=== PATIENT | female | born 1965 | race African-American/Black ===

== ENCOUNTER 2017-08-19 23:24 | Emergency (ER) | payer OTHER ==
[~2017-08-19] VITALS: Ht 165.1 cm; Wt 97.5 kg
[~2017-08-19 23:24] MED LIST: AMLO1TAB15 PO; LOPE2CAP PO; LOSA100T2 PO
[2017-08-20] MEDS ORDERED: ONDANSETRON PF 4 MG/2 ML VIAL. IV ONE (00:15)
[2017-08-20] MEDS ORDERED: ASPIRIN CHEWABLE 81 MG TABLET. PO ONE (00:15)
[2017-08-20 00:19] LABS: BASO % 1 % (0-3); EOS % 6 % (0-3); HEMATOCRIT 39.1 % (36.0-47.0); HEMOGLOBIN 12.6 g/dL (12.0-15.5); LYMPH # 1.9 x10^3/uL (1.0-4.8); LYMPH % 43 % (24-48); MEAN CORPUSCULAR HEMOGLOBIN 25 pg (25-35); MEAN CORPUSCULAR HGB CONC 32 g/dL (31-37); MEAN CORPUSCULAR VOLUME 78 fL (79-100); MONO % 6 % (0-9); NEUT % 44 % (31-73); PLATELET COUNT 238 x10^3/uL (140-400); RED CELL DISTRIBUTION WIDTH 14.8 % (11.5-14.5); WHITE BLOOD COUNT 4.4 x10^3/uL (4.0-11.0)
[2017-08-20] MEDS: fentaNYL PF VIAL 100 MCG/2 ML VIAL IV PRN ×2 (00:23→01:51)
--- NOTE | 2017-08-20 00:26 | PHYS DOC ---
Past Medical History Past Medical History: Hypertension, Other Additional Past Medical Histor: childhood asthma Past Surgical History: Additional Past Surgical Histo: whipple Alcohol Use: Occasionally Drug Use: None Adult General Chief Complaint Chief Complaint: CHEST PAIN HPI HPI Patient is a 51 year old female who presents with complaint of chest pain. Patient states her symptoms are approximately 1 hour prior to arrival. Patient states that the pain started at rest along left side of her chest. Patient describes the pain as sharp. Patient states it radiates into her left upper extremity. Patient denies any associated nausea, diaphoresis, or shortness of breath with her symptoms. Patient has history of hypertension but denies any other significant past medical history. Patient denies history of smoking and denies family history of myocardial infarction. Patient states that the pain worsens when her chest is touched. Patient has not taken any medications for her symptoms. Patient states that she has had similar symptoms off and on but has not had any recently. Patient has not had any history of cardiac stress testing. Review of Systems Review of Systems Constitutional: Denies fever or chills [] Eyes: Denies change in visual acuity, redness, or eye pain [] HENT: Denies nasal congestion or sore throat [] Respiratory: Denies cough or shortness of breath [] Cardiovascular: Chest pain, denies edema[] GI: Denies abdominal pain, nausea, vomiting, bloody stools or diarrhea [] : Denies dysuria or hematuria [] Musculoskeletal: Denies back pain or joint pain [] Integument: Denies rash or skin lesions [] Neurologic: Denies headache, focal weakness or sensory changes [] Current Medications Current Medications Current Medications Medications (Trade) Dose Ordered Sig/Art Start Time Stop Time Status Last Admin Dose Admin Aspirin (Children'S Aspirin) 324 mg 1X ONCE 08/20/17 00:15 08/20/17 00:16 DC 08/20/17 00:21 324 MG Fentanyl Citrate (Fentanyl 2ml Vial) 50 mcg PRN Q15MIN PRN 08/20/17 00:15 08/21/17 00:14 08/20/17 01:51 50 MCG Ondansetron HCl (Zofran) 4 mg 1X ONCE 08/20/17 00:15 08/20/17 00:16 DC 08/20/17 00:22 4 MG Allergies Allergies Allergies Coded Allergies Type Severity Reaction Last Updated Verified No Known Drug Allergies 05/07/14 No Physical Exam Physical Exam Constitutional: Alert, afebrile, appears in no acute distress. [] HENT: Normocephalic, atraumatic, bilateral external ears normal, oropharynx moist, no oral exudates, nose normal. [] Eyes: PERRLA, EOMI, conjunctiva normal, no discharge. [] Neck: Normal range of motion, no tenderness, supple, no stridor. [] Cardiovascular:Heart rate regular rhythm, no murmur [] Lungs & Thorax: Bilateral breath sounds clear to auscultation, left anterior chest wall tenderness to palpation causing reproducible pain [] Abdomen: Bowel sounds normal, soft, no tenderness, no masses, no pulsatile masses. [] Skin: Warm, dry, no erythema, no rash. [] Back: No tenderness, no CVA tenderness. [] Extremities: No tenderness, no cyanosis, no clubbing, ROM intact, no edema. [] Neurologic: Alert and oriented X 3, normal motor function, normal sensory function, no focal deficits noted. [] Current Patient Data Vital Signs Vital Signs Date Time Temp Pulse Resp B/P (MAP) Pulse Ox O2 Delivery O2 Flow Rate FiO2 08/20/17 01:55 58 16 148/73 (98) 98 Room Air 08/19/17 23:30 97.5 97.5 Lab Values Laboratory Tests Test 08/19/17 00:05 08/19/17 23:35 08/20/17 00:23 08/20/17 01:45 Magnesium Level 2.1 mg/dL (1.8-2.4) Troponin I Quantitative < 0.017 ng/mL (0.000-0.055) < 0.017 ng/mL (0.000-0.055) Lipase 188 U/L (73-393) White Blood Count 4.4 x10^3/uL (4.0-11.0) Red Blood Count 5.00 x10^6/uL (3.50-5.40) Hemoglobin 12.6 g/dL (12.0-15.5) Hematocrit 39.1 % (36.0-47.0) Mean Corpuscular Volume 78 fL (79-100) L Mean Corpuscular Hemoglobin 25 pg (25-35) Mean Corpuscular Hemoglobin Concent 32 g/dL (31-37) Red Cell Distribution Width 14.8 % (11.5-14.5) H Platelet Count 238 x10^3/uL (140-400) Neutrophils (%) (Auto) 44 % (31-73) Lymphocytes (%) (Auto) 43 % (24-48) Monocytes (%) (Auto) 6 % (0-9) Eosinophils (%) (Auto) 6 % (0-3) H Basophils (%) (Auto) 1 % (0-3) Neutrophils # (Auto) 1.9 x10^3uL (1.8-7.7) Lymphocytes # (Auto) 1.9 x10^3/uL (1.0-4.8) Monocytes # (Auto) 0.3 x10^3/uL (0.0-1.1) Eosinophils # (Auto) 0.3 x10^3/uL (0.0-0.7) Basophils # (Auto) 0.0 x10^3/uL (0.0-0.2) Sodium Level 140 mmol/L (136-145) Potassium Level 3.4 mmol/L (3.5-5.1) L Chloride Level 103 mmol/L (98-107) Carbon Dioxide Level 30 mmol/L (21-32) Anion Gap 7 (6-14) Blood Urea Nitrogen 14 mg/dL (7-20) Creatinine 0.9 mg/dL (0.6-1.0) Estimated GFR (Cockcroft-Gault) 80.5 BUN/Creatinine Ratio 16 (6-20) Glucose Level 138 mg/dL (70-99) H Calcium Level 8.9 mg/dL (8.5-10.1) Total Bilirubin 0.2 mg/dL (0.2-1.0) Aspartate Amino Transferase (AST) 20 U/L (15-37) Alanine Aminotransferase (ALT) 28 U/L (14-59) Alkaline Phosphatase 129 U/L (46-116) H Creatine Kinase 106 U/L (26-192) 87 U/L (26-192) Creatine Kinase MB (Mass) < 0.5 ng/mL (0.0-3.6) < 0.5 ng/mL (0.0-3.6) Creatine Kinase MB Relative Index % (0-4) % (0-4) ZG-Ynk-V-Type Natriuretic Peptide 33 pg/mL (0-124) Total Protein 7.7 g/dL (6.4-8.2) Albumin 3.7 g/dL (3.4-5.0) Albumin/Globulin Ratio 0.9 (1.0-1.7) L Urine Collection Type Unknown Urine Color Yellow Urine Clarity Cloudy Urine pH 6.5 Urine Specific Sob[place]ki <=1.005 Urine Protein Negative mg/dL (NEG-TRACE) Urine Glucose (UA) Negative mg/dL (NEG) Urine Ketones (Stick) Negative mg/dL (NEG) Urine Blood Negative (NEG) Urine Nitrite Negative (NEG) Urine Bilirubin Negative (NEG) Urine Urobilinogen Dipstick 0.2 mg/dL (0.2 mg/dL) Urine Leukocyte Esterase Negative (NEG) Urine RBC 0 /HPF (0-2) Urine WBC 0 /HPF (0-4) Urine Squamous Epithelial Cells Mod /LPF Urine Bacteria Few /HPF (0-FEW) Laboratory Tests 08/19/17 23:35 Laboratory Tests 08/19/17 23:35 EKG EKG Interpreted by me: Heart rate 64, sinus rhythm, normal intervals, normal axis, no acute ST/T-wave abnormalities present[] Radiology/Procedures Radiology/Procedures One view AP chest x-ray interpreted by me: No infiltrates, no effusions, normal cardiac silhouette[] Course & Med Decision Making Course & Med Decision Making Pertinent Labs and Imaging studies reviewed. (See chart for details) The patient's HEART score is 2. Place is patient in a low risk category for adverse cardiac event. Patient's cardiac enzymes were trended in the emergency department and showed no evidence of elevation. The patient is appropriate for follow-up with cardiology in 2 days for outpatient stress testing. Patient will continue on daily low-dose aspirin. The etiology of patient's chest symptoms appear likely musculoskeletal in nature. Patient will be placed on a seven-day course of Naprosyn for treatment. Advised follow-up with primary doctor in 7 days of symptoms are not improving and cardiology workup shows no evidence of ischemia. Advised return emergency department for any worsening symptoms. Patient voiced understanding and in agreement with treatment plan. Dragon Disclaimer Dragon Disclaimer This electronic medical record was generated, in whole or in part, using a voice recognition dictation system. Departure Departure Impression: Primary Impression: Chest pain Disposition: HOME, SELF-CARE Condition: IMPROVED Referrals: KEITH RIOJAS MD (PCP) LARRY RYDER MD Patient Instructions: Chest Pain (Nonspecific) Additional Instructions: Follow-up with Dr. Ryder of cardiology in 2 days for reevaluation and to set up outpatient stress testing. Follow-up with your primary doctor in 1 week if you're chest wall pain has not improved. Return to emergency department for any worsening symptoms. Scripts Aspirin (ASPIRIN) 81 Mg Tab.chew 1 TAB PO DAILY, #30 TAB 0 Refills Prov: JARVIS VALENTIN MD 08/20/17 Naproxen (NAPROSYN) 500 Mg Tablet 1 TAB PO BID, #14 TAB 1 Refill Prov: JARVIS VALENTIN MD 08/20/17 Problem Qualifiers Primary Impression: Chest pain Chest pain type: unspecified Qualified Codes: R07.9 - Chest pain, unspecified JARVIS VALENTIN MD Aug 20, 2017 00:26
[2017-08-20 00:34] LABS: MAGNESIUM 2.1 mg/dL (1.8-2.4)
[2017-08-20 00:34] LABS: CALCIUM 8.9 mg/dL (8.5-10.1); CREATININE 0.9 mg/dL (0.6-1.0); GFR 80.5; POTASSIUM 3.4 mmol/L (3.5-5.1)
[2017-08-20 00:35] LABS: BILIRUBIN,URINE NEGATIVE (NEG); GLUCOSE,URINE NEGATIVE (NEG); NITRITE,URINE NEGATIVE (NEG); PH,URINE 6.5; PROTEIN,URINE NEGATIVE (NEG-TRACE); UROBILINOGEN,URINE 0.2 mg/dL (0.2 mg/dL)
[2017-08-20 00:40] LABS: ALBUMIN 3.7 g/dL (3.4-5.0); ALBUMIN/GLOBULIN RATIO 0.9 (1.0-1.7); TOTAL BILIRUBIN 0.2 mg/dL (0.2-1.0); TOTAL PROTEIN 7.7 g/dL (6.4-8.2)
[2017-08-20 00:47] LABS: CKMB MASS < 0.5 ng/mL (0.0-3.6); CREATINE KINASE 106 U/L (26-192)
[2017-08-20 00:48] LABS: BACTERIA,URINE FEW /HPF (0-FEW); RBC,URINE 0 /HPF (0-2); SQUAMOUS EPITHELIAL CELL,UR MOD /LPF; WBC,URINE 0 /HPF (0-4)
[2017-08-20 02:17] LABS: CKMB MASS < 0.5 ng/mL (0.0-3.6); CREATINE KINASE 87 U/L (26-192)
[2017-08-20 02:30] VITALS: BP 129/67
[2017-08-20] MEDS ORDERED: NAPR500T PO (02:33)
[2017-08-20] MEDS ORDERED: ASPI-630 PO (02:33)
--- NOTE | 2017-08-20 07:32 | RAD ---
Indication chest pain. A single view of the chest was obtained and is compared to an examination 02/10/2015. The heart, pulmonary vessels and mediastinum appear normal. The lungs are clear. There has been little change when compared to the previous exam. IMPRESSION: No acute or focal process. No significant change
--- NOTE | 2017-08-20 07:41 | EKG ---
[facility] [address] [place] [address] Test Date: 2017-08-19 Test Time: 23:31:06 Pat Name: FERMIN NEWTON Department: Room: Gender: F Interpretive Naturalist: : 1965 Requested By: JARVIS VALENTIN Order Number: [id number] Reading MD: Measurements Intervals [place] Rate: 64 P: 64 TN: 160 QRS: 59 QRSD: 78 T: 43 QT: 392 QTc: 404 Interpretive Statements SINUS RHYTHM QRS(T) CONTOUR ABNORMALITY CONSIDER ANTEROSEPTAL MYOCARDIAL DAMAGE RI6.01 Unconfirmed report No previous ECG available for comparison
== END 2017-08-20 02:46 | disposition home or self-care (01) ==
LOC: ER 23:24
DX: R07.89 Other chest pain (principal); I10 Essential (primary) hypertension
CPT/HCPCS: 36415; 71010; 80053; 81001; 82553; 83690; 83735; 83880; 84484; 85025; 93005; 96374; 96375; 96376; 99285; J2405; J3010

== ENCOUNTER 2021-06-09 18:39 | Emergency (ER) | payer OTHER ==
[2017-11-04 15:00] VITALS: BP 123/75
[~2021-06-09 18:39] MED LIST changes: +ASPI-630 PO; +NAPR-683 PO
== END 2021-06-09 19:54 | disposition left against medical advice (07) ==
LOC: ER 18:39
DX: M79.601 Pain in right arm (principal); Z53.21 Procedure and treatment not carried out due to patient leaving prior to being seen by health care provider

== ENCOUNTER 2021-08-03 06:29 | Emergency (ER) | payer BC, OTHER ==
[~2021-08-03] VITALS: Ht 165.1 cm; Wt 106.8 kg
--- NOTE | 2021-08-03 07:45 | ED.ADGEN ---
Past Medical History Past Medical History: Hypertension, Other Additional Past Medical Histor: childhood asthma, PANCREATIC MASS Past Surgical History: , Hysterectomy Additional Past Surgical Histo: whipple Smoking Status: Never Smoker Alcohol Use: Occasionally Drug Use: None General Adult EDM: Chief Complaint: UPPER EXTREMITY PAIN HPI: HPI: Patient is a 55 year old female coming in for right arm pain for the past at least 4 months. Patient states the pain comes and goes was little bit worse when she woke up today. Says the pain is in her wrists predominantly and some pain in her elbow. Took some Tylenol yesterday but nothing today. Denies any injuries. States she is right-handed and is on the computer most of the time while she is at work typing. Denies any wrist or hand swelling. Denies any paresthesias or numbness. Denies any systemic complaints. No history of gout or pseudogout. Review of Systems: Review of Systems: All other systems within normal limits except for as noted in the HPI Allergies: Allergies: Allergies Coded Allergies Type Severity Reaction Last Updated Verified No Known Drug Allergies 05/07/14 No Physical Exam: PE: Constitutional: Well developed, well nourished, no acute distress, non-toxic appearance. [] HENT: Normocephalic, atraumatic, bilateral external ears normal, nose normal. [] Eyes: PERRLA, conjunctiva normal, no discharge. [] Neck: No rigidity, supple, no stridor. [] Cardiovascular: Regular rate and rhythm, brisk cap refill [] Lungs & Thorax: Non labored symmetric respirations, no tachypnea or respiratory distress [] Abdomen: Soft, nondistended. Skin: Warm, dry, no erythema, no rash. [] Back: Unremarkable Extremities: No deformities, range of motion grossly intact, no lower extremity edema. No tenderness above elbow. Range of motion of elbow intact. Pain with active range of motion of wrist. Nerves intact distal to sites of pain. No sensory deficits. No joint swelling or point tenderness to palpation. [] Neurologic: Alert and oriented X 3, no focal deficits noted. [] Psychologic: Affect normal, judgement normal, mood normal. [] Current Patient Data: Vital Signs: Vital Signs Date Time Temp Pulse Resp B/P (MAP) Pulse Ox O2 Delivery O2 Flow Rate FiO2 08/03/21 07:08 97.1 72 17 166/108 (127) 99 Room Air 97.1 EKG: EKG: [] Heart Score: C/O Chest Pain: No Risk Factors: Risk Factors: DM, Current or recent (<one month) smoker, HTN, HLP, family history of CAD, obesity. Risk Scores: Score 0 - 3: 2.5% MACE over next 6 weeks - Discharge Home Score 4 - 6: 20.3% MACE over next 6 weeks - Admit for Clinical Observation Score 7 - 10: 72.7% MACE over next 6 weeks - Early Invasive Strategies Radiology/Procedures: Radiology/Procedures: [facility] [address] [place] [address] IMAGING REPORT Signed PATIENT: FERMIN NEWTON MACCOUNT: [id number] : 1965 LOCATION: ER AGE: 55 SEX: F EXAM STATUS: REG ER ORD. PHYSICIAN: PALLAVI GUERRA MD REASON: pain PROCEDURE: WRIST 2V RIGHT INDICATION: Pain in the right elbow and wrist COMPARISON: None. IMPRESSION: Right elbow: 2 views obtained. Limited exam secondary to only 2 views obtained. No evidence of dislocation. A definite acute fracture line is not seen. Right wrist: 2 views obtained. Limited exam secondary to only 2 views obtained. There is some degenerative changes without a definite acute fracture line or dislocation seen. Electronically signed by: Frank Teixeira MD (08/03/2021 7:50 AM) [id number] DICTATED and SIGNED BY: FRANK TEIXEIRA MD DATE: 08/03/21 [id number] [] Course & Med Decision Making: Course & Med Decision Making Exam benign, no signs of erosion in elbow or wrist. Likely overuse. No signs of inflammatory process in joints. Dragon Disclaimer: Dragon Disclaimer: This electronic medical record was generated, in whole or in part, using a voice recognition dictation system. Departure Departure Impression: Primary Impression: Wrist pain, chronic Disposition: 01 HOME / SELF CARE / HOMELESS Condition: STABLE Referrals: Clint HENAO MD (PCP) Patient Instructions: Wrist Pain Additional Instructions: Wear wrist splint as able to, especially while sleeping. Use Tylenol, ibuprofen, [id number] topical medications, and ice for symptom relief. PALLAVI GUERRA MD Aug 03, 2021 07:45
--- NOTE | 2021-08-03 07:52 | RAD ---
INDICATION: Pain in the right elbow and wrist COMPARISON: None. IMPRESSION: Right elbow: 2 views obtained. Limited exam secondary to only 2 views obtained. No evidence of disloc ation. A definite acute fracture line is not seen. Right wrist: 2 views obtained. Limited exam secondary to only 2 views obtained. There is some degener ative changes without a definite acute fracture line or dislocation seen. Electronically signed by: Frank Melton MD (08/03/2021 7:50 AM) [id number]
[2021-08-03 08:14] VITALS: BP 181/89
== END 2021-08-03 08:15 | disposition home or self-care (01) ==
LOC: ER 06:29
DX: M25.531 Pain in right wrist (principal); G89.29 Other chronic pain; M25.521 Pain in right elbow; I10 Essential (primary) hypertension
CPT/HCPCS: 29125; 73070; 73100; 99284